=== PATIENT | female | born 1955 | race Caucasian/White ===

== ENCOUNTER 2021-06-03 02:38 | Emergency (ER) | payer OTHER ==
[~2021-06-03] VITALS: Ht 157.5 cm; Wt 54.4 kg
[~2021-06-03 02:38] MED LIST: SYNTHROID125 MCG PO
[2021-06-03] MEDS ORDERED: COZAAR 25 MG TA25 M1 PO (02:49)
[2021-06-03] MEDS ORDERED: DILTIAZEM 24HR180 M1 PO (02:49)
[2021-06-03 03:38] LABS: ABSOLUTE NEUTROPHILS 2.6 thou/uL (1.4-8.2); BASOPHILS 0.9 % (0.0-2.0); EOSINOPHILS 4.4 % (0.0-3.0); HEMATOCRIT 39.9 % (37.0-47.0); HEMOGLOBIN 13.2 gm/dL (12.0-15.0); MCH 26.6 pg (26.0-34.0); MCV 80.7 fL (80.0-100.0); MONOCYTES 8.2 % (1.0-8.0); PLATELET COUNT 194 thou/uL (150-400); POLYS 45.5 % (36.0-66.0); RBC 4.94 mil/uL (4.20-5.00); RDW 13.8 % (10.5-14.5); WBC 5.8 thou/uL (4.0-11.0)
[2021-06-03 03:42] LABS: CALCIUM 9.4 mg/dL (8.5-10.1); CREATININE 0.9 mg/dL (0.6-1.0); POTASSIUM 3.7 mmol/L (3.5-5.1)
[2021-06-03 04:35] LABS: URINE BILIRUBIN NEGATIVE (Negative); URINE BLOOD NEGATIVE (Negative); URINE CLARITY CLEAR; URINE COLOR YELLOW; URINE GLUCOSE-RANDOM* NEGATIVE (Negative); URINE KETONES NEGATIVE (Negative); URINE LEUKOCYTES-REFLEX NEGATIVE (Negative); URINE NITRITE-REFLEX NEGATIVE (Negative); URINE PROTEIN (DIPSTICK) NEGATIVE (Negative); URINE UROBILINOGEN 0.2 E.U./dl (0.2-1.0)
[2021-06-03 07:01] VITALS: BP 123/63
--- NOTE | 2021-06-03 07:20 | EKG ---
[place] [address] [facility] [place] [address] ELECTROCARDIOGRAM REPORT Name: ABDELRAHMAN GARCIA Room #: DEP [facility]#: [id number] Admission: 06/03/21 Attend Phys: Discharge: 06/03/21 Date of : 55 Report #: [id number] [facility] ED Test Date: 2021-06-03 Test Time: 02:46:16 Pat Name: ABDELRAHMAN GARCIA Department: Room: Gender: F Backbreaker: [id number] : 1955 Requested By: Nolan Rivera Order Number: [id number] MD: Waylon Galeana Measurements Intervals [place] Rate: 60 P: 75 NE: 149 QRS: 51 QRSD: 102 T: 52 QT: 448 QTc: 448 Interpretive Statements Sinus rhythm Left atrial enlargement Compared to ECG 10/02/2012 08:29:45 Atrial abnormality now present ST (T wave) deviation no longer present Electronically Signed On 06-03-2021 7:20:27 [employer] by Waylon Galeana [email or web address] <ELECTRONICALLY SIGNED> By: Waylon Galeana MD, [facility] 06/03/21 0720 [id number] Waylon Galeana MD, FAC /EPI
== END 2021-06-03 07:02 | disposition home or self-care (01) ==
LOC: ER
PROVIDERS: Emergency Medicine
DX: R07.89 Other chest pain (principal); I10 Essential (primary) hypertension; K21.9 Gastro-esophageal reflux disease without esophagitis; Z79.899 Other long term (current) drug therapy